=== PATIENT | male | born 1995 | race Caucasian/White ===

== ENCOUNTER 2017-03-05 14:42 | Emergency (ER) | payer MEDICAID ==
[~2017-03-05] VITALS: Ht 175.3 cm; Wt 67.6 kg
[2017-03-05 15:10] VITALS: BP 121/69
--- NOTE | 2017-03-05 18:00 | NUR ---
21/M BIB MOTHER FOR EVALUATION OF RIGHT TESTICULAR PAIN X2 DAYS. MOTHER DENIES ANY FALL OR TRAUMA. PT DENIES N/V/D; SKIN IS PINK/WARM/DRY; AAOX4 WITH EVEN AND STEADY GAIT; LUNGS CLEAR BL; HR EVEN AND REGULAR; PT DENIES ANY FEVER, CP, SOB, OR COUGH AT THIS TIME; PATIENT STATES PAIN OF 10/10 AT THIS TIME; VSS; PATIENT POSITIONED FOR COMFORT; HOB ELEVATED; BEDRAILS UP X2; BED DOWN. ER MD MADE AWARE OF PT STATUS.
[2017-03-05 18:40] VITALS: BP 129/83
== END 2017-03-05 18:40 | disposition home or self-care (01) ==
LOC: MED 14:42
DX: N45.2 Orchitis (principal)
CPT/HCPCS: 76870; 99284